=== PATIENT | female | born 1945 | race Caucasian/White ===

== ENCOUNTER → 2024-04-23 16:14 | Outpatient (REF) | payer OTHER, SELFPAY | LOC: WDC 16:14 | PROVIDERS: ATTENDING PHYSICIAN Obstetrics & Gynecology; FAMILY PHYSICIAN Family Medicine | DX: Z12.31 Encounter for screening mammogram for malignant neoplasm of breast (principal) | CPT/HCPCS: 77063; 77067 ==

== ENCOUNTER → 2024-08-27 09:21 | Outpatient (REF) | payer OTHER, SELFPAY | LOC: RAD 09:21 | PROVIDERS: ATTENDING PHYSICIAN Obstetrics & Gynecology; FAMILY PHYSICIAN Family Medicine | DX: M81.0 Age-related osteoporosis without current pathological fracture (principal) | CPT/HCPCS: 77080 ==

== ENCOUNTER → 2025-05-01 08:06 | Outpatient (REF) | payer OTHER, SELFPAY | LOC: WDC 08:06 | PROVIDERS: ATTENDING PHYSICIAN Family Medicine | DX: Z12.31 Encounter for screening mammogram for malignant neoplasm of breast (principal) | CPT/HCPCS: 77063; 77067 ==